=== PATIENT | female | born 1955 | race Caucasian/White ===

== ENCOUNTER → 2017-11-06 | Outpatient (CLI) | payer OTHER ==
--- NOTE | 2017-11-06 15:52 | REP ---
RIGHT FOOT, FOUR VIEWS: HISTORY: Great toe pain. There is a nondisplaced fracture of the distal phalange of the first digit. There is no dislocation. There is narrowing of the first metatarsal phalangeal joint space with associated osteophyte formation. IMPRESSION: Fracture of the distal phalange of the first digit. Signed by Burton Ash MD 11/06/2017 03:55 P
== END ==
LOC: M LRY 15:17
PROVIDERS: ATTEND Nurse Practitioner Family
DX: M79.674 Pain in right toe(s) (principal)

== ENCOUNTER 2019-09-27 19:43 | Emergency (ER) | payer OTHER, SELFPAY ==
[~2019-09-27] VITALS: Ht 175.3 cm; Wt 102.3 kg
[2019-09-27] MEDS ORDERED: MORPHINE 4 MG/ML 1ML VIAL/SYRINGE (J2270) As Ordered ONE (19:56)
[2019-09-27] MEDS ORDERED: ONDANSETRON 4MG/2ML VIAL (J2405) As Ordered ONE (19:56)
[2019-09-27] MEDS ORDERED: NS 500 ML IV ONE (20:00)
[2019-09-27] MEDS ORDERED: MORPHINE 4 MG/ML 1ML VIAL/SYRINGE (J2270) IV ONE (20:00)
[2019-09-27] MEDS ORDERED: ONDANSETRON 4MG/2ML VIAL (J2405) IV ONE (20:00)
[2019-09-27] MEDS ORDERED: LANTINJ4 SC (20:01)
[2019-09-27] MEDS ORDERED: LISI-538 PO (20:01)
[2019-09-27] MEDS ORDERED: LEVO150T7 PO (20:01)
[2019-09-27] MEDS ORDERED: ROSU20TA5 PO (20:01)
[2019-09-27] MEDS ORDERED: METF10004 PO (20:01)
[2019-09-27] MEDS ORDERED: NOVOINJ3 (20:01)
[2019-09-27 20:18] LABS: BASO # 0.1 10^3/uL (0.0-0.2); BASO % 0.6 % (0.0-1.0); EOS # 0.3 10^3/uL (0.0-0.5); EOS % 2.7 % (0.0-3.0); HEMATOCRIT 36.3 % (36.0-47.0); HEMOGLOBIN 12.2 g/dl (12.0-15.5); LYMPH # 2.8 10^3/uL (1.5-5.0); LYMPH % 23.9 % (24.0-44.0); MEAN CORPUSCULAR HEMOGLOBIN 30.9 pg (27.0-33.0); MEAN CORPUSCULAR HGB CONC 33.6 g/dl (32.0-36.5); MEAN CORPUSCULAR VOLUME 91.9 fl (80.0-96.0); MONO # 0.7 10^3/uL (0.0-0.8); MONO % 6.1 % (0.0-5.0); NEUTROPHILS # 7.7 10^3/uL (1.5-8.5); NEUTROPHILS % 66.3 % (36.0-66.0); PLATELET COUNT, AUTOMATED 264 10^3/uL (150-450); RED BLOOD COUNT 3.95 10^6/uL (4.00-5.40); WHITE BLOOD COUNT 11.6 10^3/uL (4.0-10.0)
[2019-09-27 20:35] LABS: CALCIUM LEVEL 8.9 MG/DL (8.8-10.2); CREATININE FOR GFR 1.13 MG/DL (0.55-1.30); GLOMERULAR FILTRATION RATE 51.6 (>45); POTASSIUM SERUM 3.8 MEQ/L (3.5-5.1)
[2019-09-27] MEDS ORDERED: NS 1,000 ML IV SCH (20:35)
[2019-09-27] MEDS ORDERED: PROPOFOL 200 MG/20 ML VIAL IV PRN (20:45)
[2019-09-27 21:11] VITALS: O2SAT 98
[2019-09-27 21:43] VITALS: BP 162/76
[2019-09-27] MEDS ORDERED: NORC1TAB7 PO (21:44)
--- NOTE | 2019-09-28 07:43 | REP ---
Clinical: Status post reduction. Technique: AP and lateral views of the right elbow. Findings: Satisfactory reduction at the elbow joint. No obvious acute fracture. Impression: Satisfactory reduction. Electronically Signed by Kirill Fairchild MD 09/28/2019 07:34 A
--- NOTE | 2019-09-28 08:13 | REP ---
Nickel: Trauma. Technique: AP, lateral, oblique views of the right forearm. Findings: Posterior dislocation at the elbow noted. No definite acute fracture although subtle small fracture fragment cannot be excluded. Impression: Posterior elbow dislocation. Electronically Signed by Kirill Fairchild MD 09/28/2019 08:04 A
--- NOTE | 2019-09-28 17:17 | ER ---
DATE OF CONSULTATION: 09/27/2019 I saw the patient on 09/27/2019 in the emergency room (ER) at approximately 9:00 p.m. CHIEF COMPLAINT: Elbow dislocation. 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 She is right dominant. She had immediate pain and deformity. She was brought to the emergency room, not complaining of any numbness or tingling but complaining of severe pain. No loss of consciousness. No other injury. Imaging studies reflected a right elbow dislocation without obvious fracture. Orthopedics was consulted by the ER. Her [facility] and medical history were reviewed and noncontributory. Imaging studies were reviewed; elbow dislocation posterior. PHYSICAL EXAMINATION: She is alert, oriented and cooperative. Mood and affect are appropriate. Appears to be her stated age of 64. She is uncomfortable. She is neurologically intact. She has a palpable radial pulse on the right upper extremity. There appears to be no other obvious injury. She does not have any pain on the contralateral side. No deformity on the contralateral side. The right elbow is mildly swollen and grossly deformed consistent with dislocation of the elbow, palpable pulse. REDUCTION MANEUVER: Conscious sedation was administered by the emergency room, and I performed a closed reduction. After the closed reduction, I was able to range the elbow, supinate and pronate and palpate the radial capitellar joint and the proximal aspect of the olecranon appeared to be located. Continued to have a palpable pulse. Postreduction imaging studies were taken. I stayed to review them. They reflect reduced elbow dislocation and acceptable alignment. Posterior splint was applied. IMPRESSION: Elbow dislocation right upper extremity in a right-handed woman, which occurred at work. RECOMMENDATIONS: She will be discharged in a posterior splint and a sling with pain control medications. She will follow up in the office within a week to repeat imaging studies and make sure that the elbow has not displaced again. Talked to the patient; this may require a significant rehabilitation period and she understands. She will be totally impaired from ability to perform work-type activity for at least the next week, and there is potential for some light duty that is available after that based on further evaluation and review. She will not be able to effectively use her right upper extremity, however, for work activities for a period of at least 4-6 weeks. Additional imaging may be required if the patient does not progress in mobilization in therapy.
== END 2019-09-27 22:19 | disposition home or self-care (01) ==
LOC: M ED 20:43
DX: S53.124A Posterior dislocation of right ulnohumeral joint, initial encounter (principal); W19.XXXA Unspecified fall, initial encounter; Y92.099 Unspecified place in other non-institutional residence as the place of occurrence of the external cause; Y93.9 Activity, unspecified; Y99.9 Unspecified external cause status; E11.9 Type 2 diabetes mellitus without complications; I10 Essential (primary) hypertension; Z79.4 Long term (current) use of insulin; Z79.899 Other long term (current) drug therapy; Z88.0 Allergy status to penicillin
CPT/HCPCS: 24605; 73070; 73090; 80048; 85025; 93041; 94760; 96374; 96375; 99285; J2270; J2405

== ENCOUNTER 2021-10-30 11:05 | Emergency (ER) | payer OTHER ==
[~2021-10-30] VITALS: Ht 175.3 cm; Wt 98.3 kg
[~2021-10-30 11:05] MED LIST: LANTINJ4 SC; LEVO150T7 PO; LISI20TA33 PO; METF10004 PO; NORC1TAB7 PO; NOVOINJ3; ROSU20TA5 PO
[2021-10-30] MEDS ORDERED: NAPR-837 PO (16:23)
[2021-10-30 16:46] VITALS: BP 170/90
[2021-10-30] MEDS ORDERED: LISI10TA22 PO (16:47)
== END 2021-10-30 16:48 | disposition home or self-care (01) ==
LOC: M ED 11:05
DX: G57.12 Meralgia paresthetica, left lower limb (principal); E11.9 Type 2 diabetes mellitus without complications; E03.9 Hypothyroidism, unspecified; Z88.0 Allergy status to penicillin; Z79.899 Other long term (current) drug therapy; Z79.890 Hormone replacement therapy; Z79.4 Long term (current) use of insulin

== ENCOUNTER → 2021-11-08 | Outpatient (CLI) | payer OTHER ==
[~2021-11-08] MED LIST changes: +LISI10TA22 PO; +NAPR-837 PO
[2021-11-08 15:54] LABS: RHEUMATOID FACTOR QUANT < 10.0 IU/ML (<15.0)
[2021-11-08 16:02] LABS: FOLATE 10.3 NG/ML; VITAMIN B12 LEVEL 1669 PG/ML
== END ==
LOC: M PLALAB 13:59
PROVIDERS: ATTEND Psychiatry & Neurology Neurology
DX: M54.50 Low back pain, unspecified (principal); G62.9 Polyneuropathy, unspecified